=== PATIENT | female | born 1945 | race Caucasian/White ===

== ENCOUNTER → 2017-01-30 | Outpatient (CLI) | payer OTHER ==
[~2017-01-30] MED LIST: ASPIRIN81 M2 PO; ASPIRIN81 MG PO; CELEXA10 MG PO; CRESTOR10 MG PO; DITROPAN PO; ELMIRON100 MG PO; ESCITALOPRAM OX20 MG PO; FLAGYL PO; LEVAQUIN PO; LISINOPRIL10 MG PO; LOPID600 MG PO; MAGNESIUM400 MG PO; METFORMIN HCL500 M1 PO; METOPROLOL SUCC25 MG PO; NEURONTIN100 MG PO; OMEPRAZOLE40 M1 PO; PRILOSEC20 MG PO; PRINIVIL10 MG PO; ROPINIROLE HCL1 MG PO; SIMVASTATIN80 MG PO; VITAMIN D250000 UNIT PO
--- NOTE | ~2017-01-30 | BD1 ---
[facility] A Service of [facility] & [facility] RADIOLOGY TEXT RESULTS PATIENT: LISA WEBER LOCATION: [facility] : 47 UNIT #: [id number] AGE: [address]: Helga Ga MD SEX: F ORDER DR: [id number] [facility] [address] [place], [place] [address] [id number] O MR#: [id number] Acc #: [id number] NAME: LISA WEBER : 1945 SEX: F STUDY DATE/TIME: 01/30/2017 13:10 UNIT: [facility] ROOM: STUDY DESCRIPTION: BD Dexa Bone Dens 1+ Site Attending Physician: Helga Ga M.D. Referring Physician: Helga Ga M.D. Ordering Physician: Helga Ga M.D. Primary Care Physician: Helga Ga M.D. MEDICAL IMAGING REPORT This report is preliminary unless electronic signature is present EXAM DXA scan 01/30/2017 HISTORY Status post menopause with no hormone replacement therapy. Osteopenia. Hysterectomy at age 32. Arthritis and diabetes. Smoking history for 30 years. FINDINGS Bone mineral density in the lumbar spine from L1-L4 is 0.915 g/cm2 which is 1.2 standard deviations below the mean when compared to the young adult reference population which is characteristic of osteopenia. This is 0.9 standard deviations above the mean when compared to the age-matched population. Bone mineral density in the left femoral neck was 0.914 g/cm2 which is 0.6 standard deviations above the mean when compared to the young adult reference population which is within the range of normal. This is 2.4 standard deviations above the mean when compared to the age-matched population. IMPRESSION Bone mineral density in the lumbar spine characteristic of osteopenia and within the left hip within the range of normal. Dictated by... Jose Baez M.D. THIS IS AN ELECTRONICALLY VERIFIED REPORT Jose Baez M.D. at 01/31/2017 2:24 PM KRT/pcl STS. [facility] A Service of [facility] & [facility] RADIOLOGY TEXT RESULTS PATIENT: LISA WEBER LOCATION: [facility] : 47 UNIT #: [id number] AGE: [address]: Helga Ga MD SEX: F ORDER DR: TD: 01/30/2017 17:40 JOB #: [id number] MEDICAL IMAGING REPORT COPY
== END | disposition home or self-care (01) ==
LOC: CWCC 12:33
DX: Z13.820 Encounter for screening for osteoporosis (principal); M85.88 Other specified disorders of bone density and structure, other site
CPT/HCPCS: 77080

== ENCOUNTER 2017-05-26 11:12 | Inpatient (IN) | payer OTHER ==
--- NOTE | ~2017-05-26 | CR72 ---
[facility]. [facility] A Service of [facility] & [facility] RADIOLOGY TEXT RESULTS PATIENT: LISA WEBER LOCATION: [facility] 54- : 47 UNIT #: [id number] AGE: [address]: Abbie Thakkar MD SEX: F ORDER DR: [id number] [facility] [address] [place], [place] [address] [id number] MR#: [id number] Acc #: [id number] NAME: LISA WEBER. : 1945 SEX: F STUDY DATE/TIME: 05/26/2017 13:03 UNIT: [facility] ROOM: [facility] STUDY DESCRIPTION: CR Chest Single View Portable Attending Physician: Brooke Salazar M.D. Ordering Physician: Alfonso Kirkpatrick M.D. Primary Care Physician: Helga Ga M.D. MEDICAL IMAGING REPORT This report is preliminary unless electronic signature is present EXAM Portable chest. HISTORY Chest pain today. FINDINGS The cardiac size and pulmonary vascularity are normal. No infiltrates or effusions. Small calcified right hilar nodes. IMPRESSION No acute findings and no active disease. Dictated by... Cesar Khoury M.D. THIS IS AN ELECTRONICALLY VERIFIED REPORT Cesar Khoury M.D. at 05/27/2017 10:33 PM SHADI/sudhakar TD: 05/26/2017 23:01 JOB #: [id number] MEDICAL IMAGING REPORT Page 1 of 1 COPY
--- NOTE | ~2017-05-26 | EKG ---
PATIENT: LISA WEBER UNIT #: [id number] Ventricular Rate: 88 BPM Atrial Rate: 88 BPM P-R Interval: 158 ms QRS Duration: 80 ms Q-T Interval: 394 ms QTC Calculation(Bezet): 476 ms P [place]: 50 degrees Calculated R [place]: 9 degrees Calculated T [place]: 50 degrees Diagnosis Line: Normal sinus rhythm Diagnosis Line: Normal ECG Diagnosis Line: When compared with ECG of 26-MAY-2017 12:39, Diagnosis Line: (unconfirmed) Diagnosis Line: No significant change was found Diagnosis Line: Confirmed by MARINE TERRY MD ([id number]) on Diagnosis Line: 05/28/2017 11:07:55 AM INTERPRETING MD: HARRISON DAUGHERTY
--- NOTE | ~2017-05-26 | OR ---
Unit #: [id number] #: [id number] Patient: LISA WEBER [id number] [address] [place], [place] [address] [id number] I MR#: [id number] NAME: LISA WEBER. ROOM: 547 Date of Procedure: 05/28/2017 Admission Date: 05/26/2017 Surgeon: Kemar Palm M.D. : 1945 Attending Physician: Fernando Solis M.D. Primary Care Physician: Helga Ga M.D. OPERATIVE REPORT PRIMARY CARE PHYSICIAN Helga Ga M.D. PREOPERATIVE DIAGNOSES The patient has presented with history of cramping, abdominal pain, diarrhea, and hematochezia as well as history of nausea and vomiting and dyspepsia. PROCEDURES PERFORMED Upper gastrointestinal endoscopy as well as colonoscopy with biopsies. POSTOPERATIVE DIAGNOSES For upper endoscopy: 1. Completely normal examination up to third part of duodenum. For colonoscopy: 1. The patient had classic changes of moderately severe ischemic colitis with abrupt transition from normal to abnormal and mucosal changes that were localized to splenic flexure and adjoining proximal descending and distal transverse colon. These were in the form of erythema, ulceration, friability, edema, and abrupt transition between normal and abnormal mucosa. Appropriate biopsies obtained from the margins of the inflammatory areas. 2. Rest of the examination up to cecum was normal. RECOMMENDATIONS The patient has moderately severe ischemic colitis. She can be discharged home on combination of Flagyl and ciprofloxacin, and intravenous antibiotics could be stopped. She should stay on low residue diet for the next 10 to 15 days. The patient will require follow up in the office and repeat examination of the colon in 3 months. SEDATION USED MAC. DESCRIPTION OF PROCEDURE Following detailed explanation of the potential risks and complications of an upper endoscopy and a colonoscopy, namely perforation, bleeding, and complications related to sedation, the patient was brought to GI lab and laid in the left lateral decubitus position. Lubricated tip of the Olympus video upper endoscope was passed through bite block into the proximal esophagus under direct vision. The entire esophageal mucosa was examined and appeared normal. Z-line was nicely demarcated, there being Unit #: [id number] #: [id number] Patient: LISA WEBER no esophagitis or hiatus hernia. The scope was then advanced into the gastric cavity and the latter was insufflated. Mucosa of the fundus, body, and antrum examined and appeared unremarkable. Pylorus was intubated with visualization of the normal duodenal bulb and second and third part of the duodenum. Upon withdrawal and retroflexion, incisura, cardia, and greater curve examined and no additional findings noted. The scope was then withdrawn in the distal esophagus. The entire esophageal mucosa was examined all the way up to pharynx. No additional findings noted. The examination table was then turned by 180 degrees and the patient positioned for a colonoscopy. A digital rectal examination was performed, which was normal. Lubricated tip of the Olympus video colonoscope was inserted through the anus and advanced under direct vision. The scope was advanced and passed up to sigmoid into descending colon. The patient was noted to have normal rectum and sigmoid colon; however, at the area of the mid descending colon, there was an abrupt transition from normal to abnormal mucosa with ulceration, edema, friability, and erythema. The changes extended for several centimeters most pronounced at the splenic flexure and in distal transverse colon, proximally mucosa again being normal. The scope tip was then navigated all the way up to cecum with visualization of the ileocecal valve and the appendiceal orifice. Preparation was fair with satisfactory visualization; however, the preparation was not good enough to identify polyps less than a centimeter in size. Successive segments of the colonic mucosa were examined upon withdrawal. Other than the changes noticed of ischemic colitis, no additional abnormalities noted. Biopsies obtained from the involved areas. The patient did not have any polyps, diverticula, or hemorrhoids. The scope was then withdrawn. The patient returned to the recovery area. She tolerated the procedure without any postprocedure complications. Dictated by... Lilia Wong/carrie TD: 05/28/2017 19:01 JOB #: [id number] CC: Lilia Herndon M.D. OPERATIVE REPORT Page 1 of 1 X Kemar Palm MD X PROCEDURE OPERATIVE NOTE
--- NOTE | ~2017-05-26 | CT4 ---
[facility] A Service of [facility] & [facility] RADIOLOGY TEXT RESULTS PATIENT: LISA WEBER LOCATION: [facility] 547-01 : [birth year] UNIT #: [id number] AGE: [address]: Abbie Thakkar MD SEX: F ORDER DR: [id number] [facility] [address] [place], [place] [address] [id number] I MR#: [id number] Acc #: [id number] NAME: LISA WEBER. : 1945 SEX: F STUDY DATE/TIME: 05/26/2017 13:57 UNIT: [facility] ROOM: [facility] STUDY DESCRIPTION: CT Abd and Pelv Wo Cont Attending Physician: Brooke Salazar M.D. Ordering Physician: Alfonso Kirkpatrick M.D. Primary Care Physician: Helga Ga M.D. MEDICAL IMAGING REPORT This report is preliminary unless electronic signature is present EXAM CT scan of the abdomen and pelvis without contrast, 05/26/2017. HISTORY Rectal bleeding, nausea, vomiting and diarrhea for [address] was performed through the abdomen and pelvis without oral or intravenous contrast administration using renal stone protocol. This CT exam was performed with one or more of the following radiation dose reduction techniques: automatic exposure control, adjustment of mA and/or kV according to patient size, and iterative reconstruction. FINDINGS ABDOMEN: There is no obstructing renal or ureteral calculus. There is a 3 mm nonobstructing stone in the left kidney. The right kidney is normal. The visualized liver, spleen, pancreas, gallbladder, and biliary tree and adrenal glands are normal. PELVIS FINDINGS: There is colonic diverticulosis. There is some mild thickening of the wall of the distal transverse colon and the descending colon with inflammatory stranding in the surrounding mesenteric fat, probably reflecting inflammatory or infectious colitis. No bowel obstruction or free air is seen and there is no evidence of abscess. There is no adenopathy. There is no free fluid in the abdomen or pelvis. There is a 3 x 1 cm cystic lesion on the left ovary. This would be better evaluated with pelvic ultrasound if clinically indicated. IMPRESSION 1. No obstructing renal or ureteral calculus. 2. 3 mm nonobstructing left renal stone. 3. Diverticulosis. [facility]. [facility] A Service of [facility] RADIOLOGY TEXT RESULTS PATIENT: LISA WEBER LOCATION: [facility] 547-01 : [birth year] UNIT #: [id number] AGE: [address]: Abbie Thakkar MD SEX: F ORDER DR: 4. Thickening of the wall of the distal transverse colon and the descending colon with inflammatory stranding in the surrounding mesenteric fat. Findings probably reflect inflammatory or infectious colitis. Clinical correlation is recommended. No bowel obstruction or abscess is seen. 5. 3.1 cm low-density lesion on the left ovary. This would be better evaluated with pelvic ultrasound if clinically indicated. Dictated by... Jose Baez M.D. THIS IS AN ELECTRONICALLY VERIFIED REPORT Jose Baez M.D. at 05/27/2017 2:13 PM MEHNAZ/guille TD: 05/26/2017 23:20 JOB #: [id number] MEDICAL IMAGING REPORT Page 1 of 1 COPY
--- NOTE | ~2017-05-26 | EKG ---
PATIENT: LISA WEBER UNIT #: [id number] Ventricular Rate: 88 BPM Atrial Rate: 88 BPM P-R Interval: 184 ms QRS Duration: 98 ms Q-T Interval: 382 ms QTC Calculation(Bezet): 462 ms P [place]: 66 degrees Calculated R [place]: 0 degrees Calculated T [place]: 45 degrees Diagnosis Line: Normal sinus rhythm Diagnosis Line: Normal ECG Diagnosis Line: No previous ECGs available Diagnosis Line: Confirmed by MARINE TERRY MD ([id number]) on Diagnosis Line: 05/28/2017 11:05:35 AM INTERPRETING MD: HARRISON DAUGHERTY
--- NOTE | ~2017-05-26 | HP ---
Unit #: [id number] #: [id number] Patient: LISA WEBER [id number] [address] [place], [place] [address] [id number] MR#: [id number] NAME: LISA WEBER. ROOM: 547 Age: 71 Sex: F Admission Date: 05/26/2017 : 1945 Attending Physician: Catalina Salazar M.D. Primary Care Physician: Helga Ga M.D. HISTORY AND PHYSICAL CHIEF COMPLAINT Abdominal pain. HISTORY OF PRESENT ILLNESS The patient is a 71-year-old female with a history of hypertension, diabetes, brought to the emergency room complaining of the abdominal pain. The patient stated the pain is mainly in the left lower quadrant and started at three o'clock this morning when she woke up with a stomach upset. The patient also complains of the nausea, vomiting and the rectal bleeding associated with the abdominal pain. The patient had a CT of the abdomen and pelvis that showed the inflammation around the transverse and descending sigmoid colon concerning for the infections or inflammatory colitis. The patient has been admitted for the above reasons. The patient stated the patient follows with a GI doctor, had the colonoscopy a year ago that showed the polyps and is due for the next colonoscopy in two years. The patient denies any history of diverticulitis in the past. The patient described the blood as a bright red blood associated with a diarrhea, denies any fever or chills, denies any chest pain or dizziness. PAST MEDICAL HISTORY History of hypertension, diabetes, hyperlipidemia and interstitial cystitis. PAST SURGICAL HISTORY Partial hysterectomy, breast biopsy, exploratory laparotomy, appendectomy, D/C and c-sections. ALLERGIES IV dye. HOME MEDICATIONS The patient is on aspirin, Ditropan, Prinivil, metformin, omeprazole, ropinirole, citalopram, Crestor, Neurontin, vitamin D2. SOCIAL HISTORY No history of smoking cigarettes, drinking alcohol or any illicit drug abuse. FAMILY HISTORY Reviewed and none. REVIEW OF SYMPTOMS Fourteen-point review of symptoms performed and only pertinent positive Unit #: [id number] #: [id number] Patient: LISA WEBER findings are described above, remaining are negative. PHYSICAL EXAMINATION GENERAL APPEARANCE: On examination the patient is lying on a bed not in acute distress. VITAL SIGNS: Temperature 98.1, pulse 89, respiratory rate 16, blood pressure 154/75, sating 96% at room air. HEENT: Head atraumatic and normocephalic. Pupils equal, round and reacting to light and accommodation. Extraocular movements are intact. NECK: Supple. LUNGS: Decreased air entry at the bases. HEART: Regular rate and rhythm. ABDOMEN: Soft, positive bowel sounds. Tenderness at the left lower quadrant. EXTREMITIES: No cyanosis. No clubbing. NEUROLOGIC: Awake, alert and oriented. No gross focal motor deficit. DIAGNOSTIC STUDIES LABORATORY DATA: WBC 14.4, hemoglobin 12.9, hematocrit 39.6, platelets 234, INR is 1, sodium 134, potassium 4.5, chloride 99, bicarb 26, glucose 196, BUN 20, creatinine 0.8, AST 26, ALT 24, troponin less than 0.05 and UA is 100 glucose, lactic acid is 2.6. IMAGING: CT of the abdomen and pelvis shows inflammation around the transverse and descending colon concerning for the inflammatory or infectious colitis. ASSESSMENT 1. Sepsis. 2. Colitis. 3. Gastrointestinal bleed/rectal bleed. PLAN Plan to admit the patient to the inpatient. Patient will have IV antibiotics with Rocephin and Flagyl. Continue the Protonix 40 mg daily and patient will be seen by the GI doctor and continue the Zofran and the bowel rest and clear liquids and further recommendations will follow. Dictated by Lilia Acevedo/jonathan TD: 05/26/2017 20:01 JOB #: [id number] Unit #: [id number] #: [id number] Patient: TIALISA HISTORY AND PHYSICAL Page 1 of 1 X CATALINA SALAZAR MD HISTORY AND PHYSICAL
--- NOTE | ~2017-05-26 | CO ---
Unit #: [id number] #: [id number] Patient: LISA WEBER [id number] [address] [place], [place] [address] [id number] I MR#: [id number] NAME: LISA WEBER ROOM: 547 Age: 71 Sex: F Admission Date: 05/26/2017 : 1945 Attending Physician: Fernando Solis M.D. Primary Care Physician: Helga Ga M.D. Consultation Date: 05/28/2017 CONSULTATION REPORT REASON FOR CONSULTATION Chest pain. HISTORY OF PRESENT ILLNESS This is a 71-year-old female with a prior medical history of hypertension, GI bleed, hyperlipidemia, interstitial cystitis, COPD with mild emphysema, and diabetes mellitus type 2. She reported to the ER on 05/26/2017 with nausea, vomiting, abdominal pain, and rectal bleeding. CT of the abdomen showed acute colitis and diverticulosis. She is scheduled to have an EGD and colonoscopy today. This morning, she had sharp left chest pain in her back and throat. She denies nausea, shortness of breath, or diaphoresis with the pain. She rate the pain 8 out of 10 on a pain scale and was given nitroglycerin, which ease the pain. She now rates the pain as a 2 out of 10 and considered an aching pain. EKG showed no ischemic changes. Troponins are currently pending. She states she did have cardiac cath done 8 to 10 years ago, she is not sure where it was performed but states it was normal. She has also had 3 stress test in the past that were reportedly normal. She states that she does have pain like this from time to time at home while she is resting, lean, and watching TV. She denies any chest pain with exertion. She currently states she feels like this is indigestion pain. PAST MEDICAL HISTORY 1. Hypertension. 2. Hyperlipidemia. 3. Interstitial cystitis. 4. COPD/emphysema. 5. Diabetes mellitus type 2. 6. Reformed tobacco abuse, quit smoking 14 years ago. 7. Reported cardiac catheterization 8 to 10 years ago, which was normal (records are currently not available). 8. Normal Cardiolite stress test x3, last 8 to 10 years ago. SOCIAL HISTORY She is retired and lives with her . She is a reformed tobacco user, who quit smoking about 14 years ago. She denies alcohol or illicit drug use. FAMILY HISTORY Her father from an SD at the age of 69. PAST SURGICAL HISTORY 1. Partial hysterectomy. Unit #: [id number] #: [id number] Patient: LISA WEBER 2. Breast biopsy. 3. Exploratory laparotomy. 4. Appendectomy. 5. . ALLERGIES She is allergic to IV dye. HOME MEDICATIONS Aspirin 81 mg p.o. daily, Ditropan 10 mg p.o. daily, Prinivil 10 mg p.o. daily, metformin 500 mg p.o. b.i.d., omeprazole 40 p.o. daily, ropinirole 1 mg p.o. b.i.d., citalopram 10 mg p.o. daily, Crestor 20 mg p.o. daily, Neurontin 100 p.o. at bedtime, vitamin D2 50,000 units p.o. weekly. REVIEW OF SYSTEMS A 10-point of review of systems was conducted and is otherwise negative except for what was stated in the HPI. PHYSICAL EXAMINATION VITAL SIGNS: Temperature 98.8, heart rate 86, respiratory rate 20, blood pressure 122/58, height 63 inches, weight 89.8 kg. GENERAL: This is a pleasant 71-year-old female, resting in bed, in no acute distress. HEENT: Head is atraumatic and normocephalic. Pupils are equal and round. Mucous membranes are moist. NECK: Supple. Trachea is midline. Negative for JVD. LUNGS: Clear, diminished in bases. Nonlabored respirations. CARDIOVASCULAR: S1 and S2. Regular rate and rhythm. No significant murmurs, rubs, or gallops. ABDOMEN: Soft, nondistended. Positive for right lower quadrant tenderness. EXTREMITIES: Pulses are palpable. No pedal edema. No cyanosis. NEUROLOGIC: Alert and oriented x3. Moves all extremities equally and follows commands without difficulty. DIAGNOSTIC STUDIES LABORATORY RESULTS: Sodium 134, potassium 3.5, chloride 99, BUN 12, creatinine 0.6, glucose 156. Hemoglobin of 11.2, hematocrit 34.5, white blood cell count 14.6, platelets 205. On 05/26/2017, point of care troponin less than 0.05 and lactic acid was 2.6. Blood cultures from 05/26/2017 showed no growth after 24 hours. IMAGING STUDIES: Chest x-ray revealed no acute findings and no active disease. CT of the abdomen and pelvis showed 3-mm nonobstructing left renal stone, diverticulosis, thickening of distal transverse colon and descending colon with inflammatory stranding in the surrounding mesenteric fat. Findings probably reflect inflammatory or infectious colitis. CARDIOVASCULAR STUDIES: EKG revealed sinus rhythm with ventricular rate of 90 and nonspecific T-wave abnormalities unchanged from prior EKG. ASSESSMENT 1. Chest pain, questionable gastroesophageal reflux disease, cannot rule out coronary vasospasm versus esophageal vasospasm. 2. Non-insulin dependent diabetes mellitus. 3. Hyperlipidemia. Unit #: [id number] #: [id number] Patient: LISA WEBER 4. Hypertension. 5. Ischemic colitis with gastrointestinal bleeding. 6. Chronic obstructive pulmonary disease. PLAN Proceed with EGD with low risk from cardiac standpoint. We will start small dose nitrates. We will continue to trend enzymes. If she will need a surgery for her colitis, we will need to proceed with ischemic workup preferably a cardiac catheterization in light of her prior stress test. Thank you for asking us to see this patient. We appreciate the consult. Dictated by... Kalyani Betts APRN for Jose Hector M.D. ELISHA/carrie TD: 05/29/2017 09:21 JOB #: [id number] CONSULTATION REPORT Page 1 of 1 X X CONSULTATION REPORT
--- NOTE | ~2017-05-26 | DS ---
Unit #: [id number] #: [id number] Patient: LISA WEBER [id number] [place], [place] [address] [id number] I MR#: [id number] NAME: LISA WEBER. ROOM: 547 Age: 71 Sex: F Admission Date: 05/26/2017 : 1945 Discharge Date: 05/29/2017 Attending Physician: Fernando Solis M.D. Primary Care Physician: Helga Ga M.D. DISCHARGE SUMMARY PRIMARY DIAGNOSIS Colitis, bacterial versus possibly ischemic. SECONDARY DIAGNOSES 1. Atypical chest pain, noncardiac. 2. Anemia. 3. Hyponatremia. 4. Depression. 5. Lower gastrointestinal bleeding/rectal bleeding. 6. Sepsis secondary to colitis. HOSPITAL COURSE Patient was placed in the hospital and was given IV antibiotics with good clinical improvement. Underwent colonoscopy, which was most suggestive of ischemic colitis. Patient will continue on an additional seven days of Flagyl and ciprofloxacin. Patient will follow up with Dr. Kemar Palm with gastroenterology in six weeks and will also plan for a repeat colonoscopy in three months. Patient did have an episode of atypical chest pain during her hospitalization here. Did have serial troponins and cardiology evaluation with Dr. Hector. Was placed on scheduled metoprolol and magnesium replacement and will be planning for an outpatient stress test with Dr. Hector, which will be arranged for later this month through Dr. Hector's office, which is [facility]. DISCHARGE DISPOSITION To home. DISCHARGE STATUS Stable. DISCHARGE ACTIVITY Ad kirti. DISCHARGE DIET Unrestricted. DISCHARGE FOLLOWUP 1. Will her PCP in 2-3 weeks. 2. Follow up with Dr. Hector for stress testing later this month. 3. Follow up with Dr. Palm on July 12 at 10:00 a.m. Phone number [phone]. Unit #: [id number] #: [id number] Patient: LISA WEBER DISCHARGE MEDICATIONS 1. Crestor 20 mg p.o. daily. 2. Lisinopril 10 mg p.o. daily. 3. Flagyl 500 mg p.o. t.i.d. x7 days. 4. Aspirin 81 mg p.o. daily. 5. Omeprazole 40 mg p.o. daily. 6. Levaquin 500 mg p.o. daily for 7 days. 7. Vitamin D2 50,000 units p.o. weekly. 8. Magnesium oxide 400 mg p.o. b.i.d. 9. Neurontin 100 mg p.o. q.h.s. 10. Citalopram 10 mg p.o. daily. 11. Metformin 500 mg p.o. b.i.d. 12. Ropinirole 1 mg p.o. b.i.d. 13. Lopressor 12.5 mg p.o. b.i.d. 14. Ditropan XL 10 mg p.o. q.h.s. Dictated by... Fernando Solis M.D. GARY/ness TD: 05/30/2017 10:00 JOB #: [id number] DISCHARGE SUMMARY Page 1 of 1 X Fernando Solis MD X DISCHARGE SUMMARY
--- NOTE | ~2017-05-26 | CO ---
Unit #: [id number] #: [id number] Patient: LISA GILLIS [id number] [address] [id number] I MR#: [id number] NAME: LISA GILLIS. ROOM: 547 Age: 71 Sex: F Admission Date: 05/26/2017 : 1945 Attending Physician: Fernando Solis M.D. Primary Care Physician: Helga Ga M.D. Consultation Date: 05/26/2017 CONSULTATION REPORT ATTENDING PHYSICIAN Dr. Brooke Salazar PREOP DIAGNOSES Abdominal pain and hematochezia and diarrhea. HISTORY Ms. Gillis is a very pleasant 71-year-old white female who was fine until a couple of days ago at home. Yesterday, she had severe cramping pain in the lower abdomen followed by watery diarrhea and then sanam blood multiple times. She ended up coming to the hospital. She felt weak and tired. Upon admission, she had a CAT scan that shows left sided colitis. The patient denies any history of fever, chills or rigors. She does feel nauseated and, additionally, vomited once or twice. PAST MEDICAL HISTORY Significant for: 1. History of hypertension. 2. Type 2 diabetes. 3. Hyperlipidemia. 4. History of cystitis. PREVIOUS SURGERIES 1. Exploratory laparotomy. 2. Partial hysterectomy. 3. Appendectomy. 4. section. MEDICATIONS Medications at home include: 1. Ditropan. 2. Prinivil. 3. Metformin. 4. Omeprazole. 5. Ropinirole. 6. Citalopram. 7. Neurontin. 8. Vitamin B12. 9. Vitamin D2. 10. Crestor. ALLERGIES She is allergic to IV dye. Unit #: [id number] #: [id number] Patient: LISA GILLIS SOCIAL HISTORY She does not smoke having smoked more than 20 years. Does not drink alcohol. FAMILY HISTORY None of colon or pancreatic cancer or liver disease. REVIEW OF SYSTEMS A detailed review of organ systems does not reveal any fevers or chills or diagnosis of weight loss. No history of cough, expectoration or hemoptysis. No history of dysuria, hematuria or pyuria. No history of focal seizures or extremity weakness. The rest of the review of organ system is unremarkable. PHYSICAL EXAMINATION GENERAL APPEARANCE: She is alert and oriented, appears comfortable and obese. VITAL SIGNS: Vital signs are stable with a temperature of 98.6. Pulse is 92/minute and regular, respirations 16, blood pressure is 162/77. She weighs 179 pounds which is close to her baseline weight. She has mild pallor, there being no icterus, lymphadenopathy or peripheral edema. CARDIOVASCULAR EXAMINATION: Normal heart sounds. No murmurs. LUNGS: Auscultation of the lungs reveals normal breath sounds, good air entry. ABDOMEN: Soft, obese, and minimally tender in the left lower quadrant. Liver and spleen are not palpable. Bowel sounds normal. Hernia site is also normal. DIAGNOSTIC STUDIES LABORATORY: Lab evaluation shows a white count of 14,000 with left shift. Hemoglobin, hematocrit and platelet counts are normal. INR is 1.0. Serum chemistry shows normal BUN and creatinine and sodium of 134, potassium is 4.5. LFTs are normal. IMAGING: The patient's CT scan of the abdomen and pelvis shows distal transverse and proximal descending colon colitis. CLINICAL IMPRESSION The patient's history, examination and CAT scan findings are all consistent with acute ischemic colitis. The purpose of the evaluation is essentially for diagnostic reasons. In addition, she also has some dyspepsia, nausea and vomiting. A diagnostic upper endoscopy and colonoscopy will be scheduled shortly. In the meantime, the patient will be on a clear liquid diet. Thank you very much for asking me to see this pleasant woman. I appreciate the consult. Dictated by... Kemar Palm M.D. [place]/ Unit #: [id number] #: [id number] Patient: LISA GILLIS TD: 05/28/2017 07:50 JOB #: [id number] CC: Brooke Salazar M.D. CONSULTATION REPORT Page 1 of 1 X Kemar Palm MD CONSULTATION REPORT
[~2017-05-26 11:12] MED LIST changes: -ASPIRIN81 MG PO; -CELEXA10 MG PO; -CRESTOR10 MG PO; -DITROPAN PO; -FLAGYL PO; -LEVAQUIN PO; -MAGNESIUM400 MG PO; -METOPROLOL SUCC25 MG PO; -NEURONTIN100 MG PO; -OMEPRAZOLE40 M1 PO; -PRINIVIL10 MG PO; -ROPINIROLE HCL1 MG PO; -VITAMIN D250000 UNIT PO
[2017-05-26 12:47] LABS: BASOPHIL% 0.1 % (0-2.5); HEMATOCRIT 39.6 % (35.0-45.0); HEMOGLOBIN 12.9 gm/dL (12.0-16.0); LYMPHOCYTE# 0.7 X10e3 (1.0-3.5); LYMPHOCYTE% 4.8 % (17.0-45.0); MEAN CELL VOLUME 83.4 FL (83-96); MEAN CORPUSCULAR HEMOGLOBIN 27.1 PG (28-34); MEAN CORPUSCULAR HGB CONC 32.5 g/dL (30-36); MEAN PLATELET VOLUME 9.6 FL (6.5-11.5); MONOCYTE# 0.6 X10e3 (0-1.0); MONOCYTE% 4.3 % (3.0-12.0); NEUTROPHIL# 13.1 X10e3 (1.5-7.1); NEUTROPHIL% 90.8 % (40-75); PLATELET COUNT 234 X10e3 (140-420); RED BLOOD COUNT 4.75 X10e (3.90-5.30); RED CELL DISTRIBUTION WIDTH 13.6 % (11.0-15.5); WHITE BLOOD COUNT 14.4 X10e3 (4.0-10.5)
[2017-05-26 13:02] LABS: PARTIAL THROMBOPLASTIN TIME 22.9 SECONDS (23.5-31.3); PROTHROMBIN TIME (PATIENT) 10.5 SECONDS (10.0-11.7)
[2017-05-26 13:05] LABS: DIFF IND NO
[2017-05-26 13:21] LABS: ALBUMIN SERUM 3.9 g/dL (3.5-5.0); ALKALINE PHOSPHATASE 76 U/L (32-92); ALT (SGPT) 24 U/L (10-40); AST (SGOT) 26 U/L (10-42); BILIRUBIN, DIRECT <0.1 mg/dL (0.0-0.2); BILIRUBIN,INDIRECT 0.1 mg/dL (0.0-0.9); BILIRUBIN,TOTAL 0.2 mg/dL (0.2-2.0); BLOOD UREA NITROGEN 20 mg/dL (9-23); CALCIUM SERUM 9.1 mg/dL (8.4-10.2); CARBON DIOXIDE 26 mmol/L (22-31); CHLORIDE 99 mmol/L (100-111); CREATININE SERUM 0.8 mg/dL (0.6-1.4); GLOM FILT RATE Estimated 75.3 mL/min (>60); GLUCOSE FASTING 196 mg/dL (70-110); POTASSIUM 4.5 mmol/L (3.5-5.1); PROTEIN TOTAL SERUM 7.3 g/dL (6.0-8.3); SODIUM 134 mmol/L (135-145)
[2017-05-26 14:10] LABS: POC - CKMB <1.0 ng/mL (0.0-7.9); POC - TROPONIN <0.05 ng/mL (<=0.05)
[2017-05-26 14:20] LABS: URINE SOURCE CLEAN CATCH
[2017-05-26 14:38] LABS: URINE APPEARANCE CLEAR; URINE BILIRUBIN NEG (NEG); URINE BLOOD NEG (NEG); URINE COLOR YELLOW; URINE GLUCOSE 100 MG/DL (NEG); URINE KETONE NEG (NEG); URINE LEUKOCYTE ESTERASE NEG (NEG); URINE NITRATE NEG (NEG); URINE PROTEIN NEG (NEG); URINE SPECIFIC GRAVITY 1.017 (1.003-1.035); URINE UROBILINOGEN 0.2 MG/DL (NEG)
[2017-05-26 15:49] LABS: CULTURE INDICATED? NO
[2017-05-26] MEDS ORDERED: ASPIRIN81 MG PO (16:33)
[2017-05-26] MEDS ORDERED: PRINIVIL10 MG PO (16:34)
[2017-05-26] MEDS ORDERED: DITROPAN PO (16:34)
[2017-05-26] MEDS ORDERED: METFORMIN HCL500 M1 PO (16:34)
[2017-05-26] MEDS ORDERED: OMEPRAZOLE40 M1 PO (16:35)
[2017-05-26] MEDS ORDERED: ROPINIROLE HCL1 MG PO (16:35)
[2017-05-26] MEDS ORDERED: CELEXA10 MG PO (16:35)
[2017-05-26] MEDS ORDERED: CRESTOR10 MG PO (16:36)
[2017-05-26] MEDS ORDERED: VITAMIN D250000 UNIT PO (16:37)
[2017-05-26] MEDS ORDERED: NEURONTIN100 MG PO (16:37)
[2017-05-27 04:26] LABS: HEMOGLOBIN 11.9 gm/dL (12.0-16.0); MEAN CELL VOLUME 82.6 FL (83-96); MEAN CORPUSCULAR HEMOGLOBIN 27.3 PG (28-34); RED BLOOD COUNT 4.36 X10e (3.90-5.30); WHITE BLOOD COUNT 13.9 X10e3 (4.0-10.5)
[2017-05-27 04:53] LABS: BUN/CREATININE RATIO 24.28; CALCIUM SERUM 8.1 mg/dL (8.4-10.2); CREATININE SERUM 0.7 mg/dL (0.6-1.4); GLOM FILT RATE Estimated 88.4 mL/min (>60); POTASSIUM 3.8 mmol/L (3.5-5.1)
[2017-05-28 05:15] LABS: HEMATOCRIT 34.5 % (35.0-45.0); HEMOGLOBIN 11.2 gm/dL (12.0-16.0); MEAN CELL VOLUME 84.3 FL (83-96); MEAN CORPUSCULAR HEMOGLOBIN 27.4 PG (28-34); MEAN CORPUSCULAR HGB CONC 32.4 g/dL (30-36); MEAN PLATELET VOLUME 9.2 FL (6.5-11.5); RED BLOOD COUNT 4.1 X10e (3.90-5.30); RED CELL DISTRIBUTION WIDTH 14.3 % (11.0-15.5); WHITE BLOOD COUNT 14.6 X10e3 (4.0-10.5)
[2017-05-28 05:37] LABS: ALBUMIN SERUM 3.2 g/dL (3.5-5.0); BILIRUBIN,TOTAL 0.4 mg/dL (0.2-2.0); CALCIUM SERUM 7.5 mg/dL (8.4-10.2); CREATININE SERUM 0.6 mg/dL (0.6-1.4); POTASSIUM 3.5 mmol/L (3.5-5.1); PROTEIN TOTAL SERUM 6.3 g/dL (6.0-8.3)
[2017-05-28 19:54] LABS: HEMATOCRIT 34.6 % (35.0-45.0); HEMOGLOBIN 11.3 gm/dL (12.0-16.0)
[2017-05-29 06:01] LABS: HEMATOCRIT 30.1 % (35.0-45.0); MEAN CELL VOLUME 83.3 FL (83-96); MEAN CORPUSCULAR HEMOGLOBIN 27.6 PG (28-34); MEAN CORPUSCULAR HGB CONC 33.1 g/dL (30-36); MEAN PLATELET VOLUME 8.8 FL (6.5-11.5); RED BLOOD COUNT 3.61 X10e (3.90-5.30); WHITE BLOOD COUNT 9.6 X10e3 (4.0-10.5)
[2017-05-29 06:58] LABS: BUN/CREATININE RATIO 21.66; CREATININE SERUM 0.6 mg/dL (0.6-1.4); MAGNESIUM 1.7 mg/dL (1.6-3.0); POTASSIUM 3.5 mmol/L (3.5-5.1)
[2017-05-29] MEDS ORDERED: FLAGYL PO (12:14)
[2017-05-29] MEDS ORDERED: LEVAQUIN PO (12:14)
[2017-05-29] MEDS ORDERED: MAGNESIUM400 MG PO (12:14)
[2017-05-29] MEDS ORDERED: METOPROLOL SUCC25 MG PO (12:18)
== END 2017-05-29 17:54 | disposition home or self-care (01) | DRG 871 ==
LOC: CED 11:12 → CEDOF 15:45 → CED 17:25 → CEDOF 17:25 → C5B 17:44 → CEDOF 17:44 → C5B 05-27 05:16
PROVIDERS: Emergency Medicine; Internal Medicine; Internal Medicine Gastroenterology
PROC: 0DJ08ZZ Inspection of Upper Intestinal Tract, Via Natural or Artificial Opening Endoscopic (ICD-10-PCS; 2017-05-28)
PROC: 0DBL8ZX Excision of Transverse Colon, Via Natural or Artificial Opening Endoscopic, Diagnostic (ICD-10-PCS; principal; 2017-05-28 13:55)
PROC: 0DBM8ZX Excision of Descending Colon, Via Natural or Artificial Opening Endoscopic, Diagnostic (ICD-10-PCS; 2017-05-28 13:55)
DX: A41.9 Sepsis, unspecified organism (principal); K55.039 Acute (reversible) ischemia of large intestine, extent unspecified; A04.9 Bacterial intestinal infection, unspecified; D64.9 Anemia, unspecified; I10 Essential (primary) hypertension; E11.9 Type 2 diabetes mellitus without complications; E87.1 Hypo-osmolality and hyponatremia; R07.89 Other chest pain; F32.9 Major depressive disorder, single episode, unspecified; Z79.84 Long term (current) use of oral hypoglycemic drugs; E78.5 Hyperlipidemia, unspecified; K21.9 Gastro-esophageal reflux disease without esophagitis; Z90.711 Acquired absence of uterus with remaining cervical stump; Z87.891 Personal history of nicotine dependence; Z91.041 Radiographic dye allergy status; Z82.49 Family history of ischemic heart disease and other diseases of the circulatory system
CPT/HCPCS: 36415; 71010; 74176; 80048; 80053; 80076; 81003; 82553; 82947; 83605; 83735; 84484; 85014; 85018; 85025; 85027; 85610; 85730; 86850; 86900; 86901; 87040; 88305; 88341; 88342; 93005; 94760; 96361; 96365; 96375; 99285; C9113; J0696; J1170; J1815; J1956; J2270; J2405; J3490